=== PATIENT | male | born 1940 | race Caucasian/White ===

== ENCOUNTER 2018-01-18 14:00 | Emergency (ER) | payer OTHER ==
[2018-01-18 14:48] LABS: #Eosinphils 0.1 thou/uL (0.0-0.7); #Lymphocytes 1.4 thou/uL (1.20-3.40); #Monocytes 0.7 thou/uL (0.11-0.59); #Neutrophils 5.1 thou/uL (1.40-6.50); %Eosinophils 1.7 % (0.0-10.0); %Lymphocytes 19.4 % (21.0-51.0); %Monocytes 9.8 % (0.0-10.0); %Neutrophils 69.1 % (42.0-75.0); Hemoglobin 15.2 g/dL (14.0-18.0); Mean Corpuscular HGB CONC 33.1 g/dL (32.0-36.0); Mean Corpuscular Hemoglobin 31.5 pg (27.0-31.0); Mean Corpuscular Volume 95.4 fl (80.0-94.0); Mean Platelet Volume 8.4 fL (7.4-10.4); Platelet Count 189 thou/uL (130-400); RBC Distribution Width 11.3 % (11.5-14.5); Red Blood Cell (RBC) Count 4.82 mill/uL (4.70-6.10); White Blood Cell (WBC) Count 7.3 thou/uL (4.8-10.8)
[2018-01-18] MEDS ORDERED: Morphine 4 MG/ML VIAL ONE (14:49)
[2018-01-18 15:12] LABS: Bilirubin Negative (Negative); Blood, Urine Negative (Negative); Clarity CLEAR (Clear); Glucose, Urine (Dipstick) Negative (Negative); Leukocyte Trace (Negative); Nitrite Negative (Negative); Protein, Urine (Dipstick) Trace mg/dL (Neg-Trace); Specific Gravity, Urine 1.021 (1.002-1.036)
[2018-01-18 15:15] LABS: Bacteria/HPF None Seen HPF (None Seen); Hyaline Casts/LPF 0-3 HYALINE CAST LPF (0-3 Hyaline); RBC/HPF 0-3 HPF (0-3); Squamous Epithelial 0-3 HPF (0-3); WBC/HPF 0-3 HPF (0-3)
[2018-01-18 15:17] LABS: ALT (SGPT) 14 U/L (8-55); AST (SGOT) 19 U/L (5-34); Albumin 4.3 g/dL (3.4-4.8); Alkaline Phosphatase 81 U/L (40-150); Anion Gap 15 mmol/L (10-20); BUN (Urea Nitrogen) 14 mg/dL (8.4-25.7); Bilirubin, Total 0.5 mg/dL (0.2-1.2); Calc. Creatinine Clearance 0 mL/min (70-130); Calcium 9.9 mg/dL (7.8-10.44); Carbon Dioxide 25 mmol/L (23-31); Chloride 109 mmol/L (98-107); Estimated GFR-MDRD 68; Globulin 2.9 g/dL (2.4-3.5); Glucose 98 mg/dL (83-110); Potassium 4.8 mmol/L (3.5-5.1); Protein, Total 7.2 g/dL (5.8-8.1); Sodium 144 mmol/L (136-145)
[2018-01-18] MEDS ORDERED: ISOVUE-370 76%-LOCM 1 ML ONE (17:50)
[2018-01-18] MEDS ORDERED: Iopamidol 370 76% 50 ML VIAL FS ONE (17:50)
--- NOTE | 2018-01-18 18:11 | CT ---
ABDOMEN AND PELVIC CT SCAN WITH IV CONTRAST: HISTORY: A 77-year-old male with a history of a right inguinal hernia with vomiting and pain at the hernia sit e. It is bigger than before. FINDINGS: Some mild dependent positional changes within the posterior lower lungs. A 0.7 cm cyst in the dome o f the right lobe of the liver. The gallbladder, pancreas, spleen, and adrenal glands are unremarkabl e. No renal calculus or acute obstruction. No large or small bowel obstruction. Normal appearin g appendix. There is some minimal free fluid within the pelvis and right colonic gutter and extendin g into the orifice region of the right inguinal canal, where there are some irregular soft tissue vera nges, which have the appearance suggesting that of an inflamed, enlarged left spermatic cord. There is no evidence for an associated bowel containing hernia. No definitive fat containing hernia. I fa vor the abnormal findings in the right inguinal canal to be that of vasitis rather than an inguinal, fat containing hernia with associated inflammation. A small amount of free fluid within the pelvis a nd right colonic gutter and at the orifice of the right inguinal canal. Severe spinal canal stenosis at L4-L5 with generalized severe spondylosis. Colonic diverticulosis without acute diverticulitis. Small cyst in the liver. Findings were discussed with Dr. Daniel at 4:38 p.m., with a description of the abnormal fluid densi ty and fat stranding and thickening within the upper right inguinal canal felt more likely to represe nt vasitis or a swollen, inflamed spermatic cord versus some other type of right inguinal inflammation, but there w as no evidence to suggest any type of bowel herniation within the right inguinal canal. CODE CR POS: CHANELL
--- NOTE | 2018-01-19 00:17 | HP ---
HISTORY OF PRESENT ILLNESS: Josafat Pope is a 77[facility] for an incarcerated right inguinal herni a. Dr. Daniel evaluated him and I was called stating he has a mass on CAT scan consistent with eith er a fat-containing hernia or some other inflammation. The patient states that he was to have a delfina ia repair at [facility] at the end of 2016, but as he became incarcerated, he could not d o that. He also has problems financially limiting his ability to accomplish that. He states he has this hernia frequently and is able to easily reduce it. He usually reduces it while standing. Carlos blue's CAT scan obtained does not reveal any other significant findings except for a mass in the right groin, which does not have any bowel loops. He has not had any nausea or vomiting. CBC and comprehe nsive metabolic profile are normal. I presented to the emergency room and discussed with the patient, examined him, and reduced his right inguinal hernia. Recommendation is that he return to shelter and we schedule outpatient repair of his hernia in the near future. I have explained to him the risk of operation, infection, bleeding, reope ration, recurrence of the hernia, and repair of this hernia robotically using mesh. He understands t he risk and benefits. ALLERGIES: None. TOBACCO: None. ALCOHOL: None. MEDICATIONS: None routinely. PAST SURGICAL HISTORY/MEDICAL HISTORY: Noncontributory. PHYSICAL EXAMINATION: VITAL SIGNS: Blood pressure 120/70, respiratory rate 20, heart rate 74. HEAD, EARS, EYES, NOSE, AND THROAT: Unremarkable. Sclerae nonicteric. SKIN: Nonjaundiced. LUNGS: Clear to auscultation. CARDIAC: Regular rate and rhythm without murmur, rub, or gallop. ABDOMEN: Soft, flat, nondistended, non-tympanitic. Testicles normal. Left groin without hernia. E xamined standing, he has a right inguinal hernia. When supine and flat with his knees and hips flexe d and taking slow deep breaths, I reduced his hernia without problems. I canceled the ultrasound may t is ordered. ASSESSMENT AND PLAN: Right inguinal hernia reduced. We would recommend he have this repaired to pre vent incarceration and complications. Risks and benefits explained above. I will have my office liam bu[facility] and try to arrange this as an outpatient to prevent complications of incarce rated hernia including emergent operation.
--- NOTE | 2018-03-06 15:09 | EKG ---
Test Reason : Blood Pressure : / mmHG Vent. Rate : 076 BPM Atrial Rate : 076 BPM P-R Int : 170 ms QRS Dur : 136 ms QT Int : 434 ms P-R-T Axes : 058 -62 -01 degrees QTc Int : 488 ms Sinus rhythm with occasional Premature ventricular complexes Right bundle branch block Left anterior fascicular block Bifascicular block Possible Lateral infarct , age undetermined Abnormal ECG Confirmed by ERNST DELAROSA ([id number]), editorial project manager GLORIA THOMAS ([id number]) on 03/06/2018 3:09:05 PM Referred By: Confirmed By:ERNST DELAROSA
== END 2018-01-18 17:48 ==
LOC: ERS 14:00
DX: K40.90 Unilateral inguinal hernia, without obstruction or gangrene, not specified as recurrent (principal)
CPT/HCPCS: 36415; 74177; 80053; 81003; 81015; 85025; 93005; 96374; J2270

== ENCOUNTER 2018-02-09 07:02 | Day surgery (SDC) | payer OTHER ==
[2018-02-08 11:07] VITALS: BMI 25.0
[~2018-02-09 07:02] MED LIST: Dexamethasone 20 MG/5 ML VIAL ONE; Glycopyrrolate 0.2 MG/ML 5 ML SYRINGE ONE; Lidocaine 1% PF 5 ML VIAL ONE; Ondansetron HCl/PF 4 MG/2 ML Vial ONE; PROPOFOL 200 MG/20 ML VIAL ONE; ePHEDrine/0.9% NaCl/PF SYRINGE 50 mg/10 ml ONE
[2018-02-09] MEDS ORDERED: Bupivacaine/Epinephrine 0.25% 30 ML VIAL ONE (07:08)
[2018-02-09] MEDS ORDERED: CEFAZOLIN/Water 2 GM/20 ML SYRINGE ONE (07:13)
[2018-02-09] MEDS ORDERED: Ketorolac Tromethamine 30 MG/ML VIAL ONE (07:13)
[2018-02-09] MEDS ORDERED: Fentanyl 100 MCG/2 ML VIAL ONE (07:25)
[2018-02-09] MEDS ORDERED: Famotidine/PF 20 mg/2ml Vial ONE (07:25)
[2018-02-09] MEDS ORDERED: Fentanyl 250 MCG/5 ML VIAL ONE (07:25)
--- NOTE | 2018-02-09 11:41 | OP ---
DATE OF PROCEDURE: 02/09/2018 PREOPERATIVE DIAGNOSES: Right inguinal hernia, indirect into the scrotum. POSTOPERATIVE DIAGNOSES: Right indirect inguinal hernia into the scrotum and left inguinal hernia, i ndirect not appreciated on exam. SURGEON: Dr. Varinder Alonzo ANESTHESIA: General. Local 0.5% Marcaine with epinephrine, 30 mL. PROCEDURE: Robotic 3DMax Bard mesh repair of bilateral inguinal hernias. PROCEDURE IN DETAIL: The patient was taken to the operating room under general anesthesia in supine position, Leon placed at the beginning of the procedure and removed at the end. Local anesthetic in filtrated into the skin and subcutaneous tissue about all operative sites, port sites. Supraumbilica l incision made and pneumoperitoneum to 15 mmHg obtained the Veress needle, replacing it with an 11 p ort. Midclavicular incisions made right and left at the same horizontal plane of the supraumbilical incision and approximately 8 cm from the midline incision and an 8 mm ports placed. Robotic camera i nserted and after proper docking procedure to the robot. The robotic inguinal hernia repair undertak en, taking down the peritoneum from the anterior superior iliac spine on the right to the midline and dissecting this inferiorly to the Bari's ligament, identifying it robotically endoscopically. The dissection was then carried out laterally by keeping dissection on the peritoneum carrying the disse ction out laterally. The inferior epigastric arteries were identified and kept free of harm. The co rd structures dissected free. A very large hernia sac carefully dissected free down into the scrotum reduced in the abdominal cavity, gaining hemostasis with cautery. Once this was performed and disse ction carried out, a 3DMax Bard right mesh was placed on the right and then attention turned to the l eft where there was noted to be an indirect hernia indentation. For this reason peritoneum was taken down on the left as described for the right. Dissection carried down the left as described the rig ht. Dissection medially, carried down to the pubis bone., Bari's ligament and then laterally, mackenzie ied out laterally and then the inferior epigastric arteries kept free of harm as the peritoneum disse cted free from the indirect hernia sac from the cord structures, taken down to cremasteric fibers to enable this. Once the peritoneum had dropped falling independently and free the left inguinal hernia , 3DMax Bard mesh placed laparoscopically in position. Using 2-0 Vicryl suture the mesh was secured to Bari's ligament on the right and left, and knots tied. A second suture was placed 2-0 Vicryl ap plying the mesh just lateral to the epigastric arteries on the anterior edge of the mesh, securing it to the fascia. Knots were tied. Mesh had a proper orientation and good lie with good coverage. Go od hemostasis noted. The peritoneum was then approximated with continuous suture of Stratafix suture , closing the mesh. The patient tolerated the procedure well. Good hemostasis noted. There was goo d mesh coverage. The pneumoscrotum reduced manually, all using the camera. The supraumbilical 11 mm port site fascia approximated with GraNee needle 0 Vicryl. Pneumoperitoneum reduced. All instrumen ts removed and all skin incisions approximated with interrupted subdermal 4-0 Monocryl and DermaGlue applied.
== END 2018-02-09 14:00 | disposition home or self-care (01) ==
LOC: SDC 07:02
PROVIDERS: ATTEND Specialist
PROC: 0YUA4JZ Supplement Bilateral Inguinal Region with Synthetic Substitute, Percutaneous Endoscopic Approach (ICD-10-PCS; principal; 2018-02-09)
DX: K40.20 Bilateral inguinal hernia, without obstruction or gangrene, not specified as recurrent (principal)
CPT/HCPCS: C1781; J0131; J1100; J1885; J2001; J2405; J2704; J3010; S0028

== ENCOUNTER 2018-09-08 11:52 | Emergency (ER) | payer OTHER ==
--- NOTE | 2018-09-08 13:03 | RAD ---
4 VIEWS LEFT KNEE: Date: 09/08/18 COMPARISON: None. HISTORY: Fall, trauma, pain. FINDINGS: There is degenerative lateral subluxation of the proximal tibia with respect to the distal femur. The re is a moderate size nonspecific knee joint effusion. There is severe degenerative change involving the patellofemoral compartment, the medial compartment, and the lateral compartment. No displaced fra cture or evidence of dislocation is seen. There is soft tissue swelling anterior to the patellar tend on. Soft tissue swelling is suspected laterally on the frontal view. IMPRESSION: Soft tissue swelling and prominent knee joint effusion with severe degenerative change. No obvious fr acture or dislocation. The knee joint effusion could be on the basis of internal derangement, degener ative change, and/or radio-occult fracture. Follow-up imaging and/or CT advised as clinically warrant ed. POS: CHANELL
== END 2018-09-08 12:57 | disposition home or self-care (01) ==
LOC: SCSER 11:52
DX: S80.02XA Contusion of left knee, initial encounter (principal); W18.30XA Fall on same level, unspecified, initial encounter